=== PATIENT | male | born 1985 | race Caucasian/White ===

== ENCOUNTER 2018-09-09 16:05 | Inpatient (IN) | payer BC ==
[~2018-09-09] VITALS: Ht 172.7 cm; Wt 77.7 kg
[2018-09-09] MEDS ORDERED: ONDANSETRON (ODT) 4 MG TAB ODT STA (17:58)
[2018-09-09] MEDS ORDERED: ACETAMINOPHEN 325 MG TAB PO ONE (18:00)
[2018-09-09] MEDS ORDERED: PIPER-TAZO 3.375 GM IV (PMX) 100 ML IVPB ONE (19:30)
[2018-09-09 20:00] VITALS: BP 130/72; PULSE 69; RESP 18
[2018-09-09] MEDS ORDERED: NACL 0.9% 3 ML SYG IV SCH (20:00)
[2018-09-09] MEDS ORDERED: ONDANSETRON 4 MG INJ IV PRN (20:00)
[2018-09-09] MEDS ORDERED: SOD CHLORIDE 0.9% 1,000 ML IV ONE (20:00)
[2018-09-09] MEDS ORDERED: ACETAMINOPHEN 325 MG TAB PO PRN (20:00)
[2018-09-09] MEDS ORDERED: morphine 4 MG/ML VIAL IV PRN (20:00)
[2018-09-09] MEDS ORDERED: DOCUSATE SODIUM 100 MG CAP PO PRN (20:00)
[2018-09-09] MEDS ORDERED: BISACODYL (EC) 5 MG TAB PO PRN (20:00)
--- NOTE | 2018-09-09 21:02 | ERD ---
ER Documentation Chief Complaint Chief Complaint MID AP SINCE 3AM NV HPI 33-year-old male presents lower and mid abdominal pain since 3 AM this morning. Moderate in severity. Patient states that he had many episodes of nonbilious n onbloody vomiting, so he vomited was this morning. Denies diarrhea. States that last meal was at 1 PM and was Amharic toast. He denies any history of abdominal surgeries ROS All systems reviewed and are negative except as per history of present illness. Medications Home Meds No Active Prescriptions or Reported Meds Allergies Allergies: Coded Allergies: No Known Drug Allergy (Verified Allergy, Unknown, 09/09/18) PMhx/Soc History of Surgery: No Anesthesia Reaction: No Hx Neurological Disorder: No Hx Respiratory Disorders: No Hx Cardiac Disorders: No Hx Psychiatric Problems: No Hx Miscellaneous Medical Probl: No Hx Alcohol Use: No Hx Substance Use: No Hx Tobacco Use: No Smoking Status: Never smoker Physical Exam Vitals Vital Signs Date Temp Pulse Resp B/P (MAP) Pulse Ox O2 O2 Flow FiO2 Time Delivery Rate 09/09/18 98.1 102 17 159/78 100 16:15 (105) Physical Exam GENERAL: well-developed/well-nourished, in no apparent distress, non-toxic appearing HENT: NC/AT, moist mucous membranes EYES: Conjunctiva normal NECK: Supple, no lymphadenopathy PULM: CTA bilaterally, no rales, rhonchi, or wheezing heard CV: Normal S1S2, RRR, good capillary refill GI: Soft, non-distended, tender to palpation lower quadrant and lower abdomen bilaterally positive McBurney's BACK: No masses EXT: No clubbing, cyanosis, or edema NEURO: Alert and Orientated SKIN: Intact, normal turgor PSYCH: Normal mood and mentation Result Diagram: 09/09/18182409/09/181824 Results 24 hrs Laboratory Tests Test 09/09/18 18:16 09/09/18 18:25 Urine Color YELLOW Urine Clarity CLEAR Urine pH 6.0 Urine Specific [place] 1.015 Urine Ketones NEGATIVE mg/dL Urine Nitrite NEGATIVE mg/dL Urine Bilirubin NEGATIVE mg/dL Urine Urobilinogen NEGATIVE mg/dL Urine Leukocyte Esterase NEGATIVE Monica/ul Urine Hemoglobin NEGATIVE mg/dL Urine Glucose NEGATIVE mg/dL Urine Total Protein NEGATIVE mg/dl White Blood Count 10.7 10^3/ul Red Blood Count 4.75 10^6/ul Hemoglobin 14.7 g/dl Hematocrit 42.1 % Mean Corpuscular Volume 88.6 fl Mean Corpuscular Hemoglobin 30.9 pg Mean Corpuscular Hemoglobin Concent 34.9 g/dl Red Cell Distribution Width 11.9 % Platelet Count 278 10^3/UL Mean Platelet Volume 9.4 fl Immature Granulocytes % 0.200 % Neutrophils % 58.8 % Lymphocytes % 31.7 % Monocytes % 7.7 % Eosinophils % 1.2 % Basophils % 0.4 % Nucleated Red Blood Cells % 0.0 /100WBC Immature Granulocytes # 0.020 10^3/ul Neutrophils # 6.3 10^3/ul Lymphocytes # 3.4 10^3/ul Monocytes # 0.8 10^3/ul Eosinophils # 0.1 10^3/ul Basophils # 0.0 10^3/ul Nucleated Red Blood Cells # 0.0 10^3/ul Sodium Level 140 mmol/L Potassium Level 3.7 mmol/L Chloride Level 102 mmol/L Carbon Dioxide Level 25 mmol/L Anion Gap 13 Blood Urea Nitrogen 12 mg/dl Creatinine 0.74 mg/dl Est Glomerular Filtrat Rate mL/min > 60 mL/min Glucose Level 88 mg/dl Calcium Level 10.3 mg/dl Total Bilirubin 0.7 mg/dl Direct Bilirubin 0.00 mg/dl Indirect Bilirubin 0.7 mg/dl Aspartate Amino Transf (AST/SGOT) 31 IU/L Alanine Aminotransferase (ALT/SGPT) 38 IU/L Alkaline Phosphatase 95 IU/L Total Protein 7.9 g/dl Albumin 4.7 g/dl Globulin 3.20 g/dl Albumin/Globulin Ratio 1.46 Lipase 49 U/L Current Medications Medications Dose Sig/Ivan Start Time Status Last (Trade) Ordered Route PRN Stop Time Admin Dose Reason Admin Ondansetron 8 mg ONCE STAT 09/09/18 DC 09/09/18 HCl (Zofran ODT 17:58 18:11 Odt) 09/09/18 18:00 650 mg ONCE ONCE 09/09/18 DC 09/09/18 Acetaminophen PO 18:00 18:11 (Tylenol 09/09/18 18:01 Tab) Procedures/MDM 33-year-old male presents with abdominal pain and CT findings that are equivocal for appendicitis. Patient will be admitted [facility] with surgical consult with Dr. Luna tomorrow morning. I have consulted this case with my supervising physician who consulted Dr. Stanford, he accepted admission. Patient is afebrile, well-appearing and nontoxic. CT abd and pelvis without contrast Calcified appendicoliths within prominent infracecal appendix but no periappe ndiceal stranding, abscess or surrounding gas. Findings are equivocal for early appendicitis. Clinical correlation suggested. Consider targeted CT right lower quadrant with delayed oral contrast or rectal contrast and intravenous contrast for more definitive diagnosis if clinically indicated. Departure Diagnosis: Primary Impression: Appendicitis Condition: Stable SARAH TELLO PA-C Sep 09, 2018 21:02
[2018-09-09 22:00] VITALS: Ht 172.7 cm; Wt 77.7 kg
[2018-09-09] MEDS: SOD CHLORIDE 0.9% 1,000 ML IV SCH (22:25)
--- NOTE | 2018-09-09 23:28 | HP ---
Date/Time of Note Date/Time of Note DATE: 09/09/18 TIME: 23:27 Assessment/Plan VTE Prophylaxis SCD applied (from Nsg): Yes Pharmacological prophylaxis: NA/contraindicated Pharm contraindication: low risk/ambulating Lines/Catheters IV Catheter Type (from Nrsg): Saline Lock Assessment/Plan Hospital Course This is a 33-year-old male being admitted to the [facility] floor for: #1 suspect early appendicitis: CT of the abdomen pelvis is concerning for early appendicitis. He is currently afebrile and has a normal white blood cell count. He does have positive McBurney's point tenderness. N.p.o., IV fluid hydration with normal saline, Zosyn IV every [address] Luna has been consulted by the ED, will await further recommendations. #2 DVT GI prophylaxis: SCDs, no GI prophylaxis indicated Further treatment strategy will be implemented as per the clinical course Result Diagram: 09/09/18182409/09/18 1825 Results 24hrs Laboratory Tests Test 09/09/18 18:16 09/09/18 18:25 Urine Color YELLOW Urine Clarity CLEAR Urine pH 6.0 Urine Specific [place] 1.015 Urine Ketones NEGATIVE Urine Nitrite NEGATIVE Urine Bilirubin NEGATIVE Urine Urobilinogen NEGATIVE Urine Leukocyte Esterase NEGATIVE Urine Hemoglobin NEGATIVE Urine Glucose NEGATIVE Urine Total Protein NEGATIVE White Blood Count 10.7 Red Blood Count 4.75 Hemoglobin 14.7 Hematocrit 42.1 Mean Corpuscular Volume 88.6 Mean Corpuscular Hemoglobin 30.9 Mean Corpuscular Hemoglobin Concent 34.9 Red Cell Distribution Width 11.9 Platelet Count 278 Mean Platelet Volume 9.4 Immature Granulocytes % 0.200 Neutrophils % 58.8 Lymphocytes % 31.7 Monocytes % 7.7 Eosinophils % 1.2 Basophils % 0.4 Nucleated Red Blood Cells % 0.0 Immature Granulocytes # 0.020 Neutrophils # 6.3 Lymphocytes # 3.4 H Monocytes # 0.8 Eosinophils # 0.1 Basophils # 0.0 Nucleated Red Blood Cells # 0.0 Sodium Level 140 Potassium Level 3.7 Chloride Level 102 Carbon Dioxide Level 25 Anion Gap 13 Blood Urea Nitrogen 12 Creatinine 0.74 Est Glomerular Filtrat Rate mL/min > 60 Glucose Level 88 Calcium Level 10.3 H Total Bilirubin 0.7 Direct Bilirubin 0.00 Indirect Bilirubin 0.7 Aspartate Amino Transf (AST/SGOT) 31 Alanine Aminotransferase (ALT/SGPT) 38 Alkaline Phosphatase 95 Total Protein 7.9 Albumin 4.7 Globulin 3.20 Albumin/Globulin Ratio 1.46 Lipase 49 HPI/ROS Admit Date/Time Admit Date/Time Sep 09, 2018 at 19:20 Hx of Present Illness Chief complaint nausea vomiting, abdominal pain times 1 day 33-year-old male presents lower and mid abdominal pain since 3 AM this morning. Moderate in severity. Patient reports that he had had pain across his lower abdomen associated with nausea and vomiting which was nonbilious and nonbloody. Denies any chest pain or shortness of breath. Denies any fevers. Allergies: NKDA Medications: None ROS Const: As per HPI Eyes : No pain discharge or redness or change in visual acuity ENT: No pain, sore throat, congestion, congestion, dysphagia or discharge Respiratory: No shortness of breath, cough, sputum, wheezing, or pleuritic pain Cardiovascular: No chest pain, palpitation, PND, or edema GI : As per HPI Genitourinary: No dysuria, hematuria, flank pain , discharge or CVA tenderness Musculoskeletal: No joint pain, back pain, neck pain, restricted range of motion in neck or joints Skin: No rash, bruising or hives Neuro: No headache, dizziness, syncope, seizure, focal weakness Endocrine: No polyuria, polydipsia, temperature intolerance Psych: No hallucination, depression, anxiety or suicidal ideation PMH/Family/Social Past Medical History Medical History: no pertinent history Medications Current Medications Sodium Chloride 1,000 ml @ 100 mls/hr Q10H IV Last administered on 09/09/18at 22:25; Admin Dose 100 MLS/HR; Start 09/09/18 at 19:54 IV Flush (NS 3 ml) 3 ml PER PROTOCOL IV ; Start 09/09/18 at 20:00 Ondansetron HCl (Zofran Inj) 4 mg Q4H PRN IV NAUSEA; Start 09/09/18 at 20:00 Acetaminophen (Tylenol Tab) 650 mg Q6H PRN PO FEVER GREATER THAN 100.6; Start 09/09/18 at 20:00 Morphine Sulfate (morphine) 2 mg Q4H PRN IV PAIN LEVEL 4-6; Start 09/09/18 at 20:00 Docusate Sodium (Colace) 100 mg Q12H PRN PO CONSTIPATION; Start 09/09/18 at 20:00 Bisacodyl (Dulcolax) 5 mg DAILY PRN PO CONSTIPATION; Start 09/09/18 at 20:00 Piperacillin Sod/ Tazobactam Sod 100 ml @ 200 mls/hr Q6 IVPB ; Start 09/10/18 at 00:00 Coded Allergies: No Known Drug Allergy (Verified Allergy, Unknown, 09/09/18) Past Surgical History Exploratory oral scope Family History Significant Family History: no pertinent family hx Social History Alcohol Use: none Smoking Status: Never smoker Drug Use: none Exam/Review of Systems Vital Signs Vitals Vital Signs Date Temp Pulse Resp B/P (MAP) Pulse Ox O2 O2 Flow FiO2 Time Delivery Rate 09/09/18 97.7 69 18 130/72 96 20:00 (91) 09/09/18 Room Air 19:49 Exam Exam General: Patient is currently lying in bed in no acute distress HEENT: Atraumatic, normocephalic. The pupils are equal, round and reactive. Extraocular motor are intact Neck: Supple with full range of motion. No rigidity or meningismus Chest: Nontender Lungs: Clear to auscultation bilaterally no crackles rales or wheezing Heart: Normal S1-S2, Regular rhythm and rate. No murmur, S3, or S4 Abdomen: Soft , tender to palpation at the right lower abdominal quadrant, positive McBurney's point tenderness, no rebound or guarding, normal bowel sounds. Extremities: Normal to inspection, no edema no cyanosis Neurologic: Normal mental status, speech normal, cranial nerves II through XII are intact, motor and sensory are intact, no focal weakness Additional Comments PROCEDURE: CT abdomen and pelvis without contrast. CLINICAL INDICATION: Pain TECHNIQUE: CT scan of the abdomen and pelvis without contrast was performed and is reconstructed at 2.5 mm contiguous axial intervals from the dome of the diaphragm to the inferior pubic rami.. The patient was scanned without intravenous contrast. Sagittal and coronal reformatted images were obtained from the axial source images. The calculated radiation dose measures 782 mGy centimeters. The CTDI measures 13 mGy. Individualized dose optimization technique was used for the performance of this exam. This included 1. Automated exposure control. 2. Adjustment of the mA and / or kV according to the patient's size. 3. Use of iterative reconstructed technique. COMPARISON: None. FINDINGS: The lung bases are clear of any infiltrate or nodule. No effusion is seen. The liver is of normal size, contour and attenuation with no mass or ductal dilatation. No gallstones are visualized. No splenic, adrenal or pancreatic abnormalities present. Kidneys are of normal size and contour. No hydronephrosis, calculus or masses seen. Ureters are of normal course and caliber with no stone. No bladder mass or stone is present. Prostate and seminal vesicles are normal. There is no aneurysm. No adenopathy is present. No bowel mass or obstruction is present. Calcified appendicoliths are seen within the appendix which measures up to 9 mm in diameter. There is no stranding of the surrounding fat and no abscess or surrounding extraluminal gas is seen.. No phlegmon, ascites or pneumoperitoneum is visualized. The osseous structures are intact. IMPRESSION: Calcified appendicoliths within prominent infracecal appendix but no periappendiceal stranding, abscess or surrounding gas. Findings are equivocal for early appendicitis. Clinical correlation suggested. Consider targeted CT right lower quadrant with delayed oral contrast or rectal contrast and intravenous contrast for more definitive diagnosis if clinically indicated. .Aneudy Cartagena MD, MD Date Time Electronically viewed and signed by .Aneudy Cartagena MD, on 09/09/2018 18:30 .A/ CC: SARAH TELLO PA-C [id number] GAVINO LUCAS Sep 09, 2018 23:28
[2018-09-09] MEDS: PIPER-TAZO 3.375 GM IV (PMX) 100 ML IVPB SCH (23:37)
[2018-09-10] VITALS (22 sets, daily range): BP systolic 109–143; BP diastolic 54–96; PULSE 52–77; RESP 13–24
[2018-09-10] MEDS: SOD CHLORIDE 0.9% 1,000 ML IV SCH ×3 (05:54→23:17)
[2018-09-10] MEDS: PIPER-TAZO 3.375 GM IV (PMX) 100 ML IVPB SCH ×3 (06:33→18:00)
--- NOTE | 2018-09-10 07:44 | CONS ---
Date/Time of Note Date/Time of Note DATE: 09/10/18 TIME: 07:41 Assessment/Plan Assessment/Plan Assessment/Plan Clinically this patient has acute appendicitis. I recommend laparoscopic appendectomy possible open. I have discussed the procedure, outcomes, expectations, alternatives and risks in detail with the patient who has an excellent understanding of the nature of his situation and agrees to the proposed plan of therapy as outlined. Result Diagram: 09/10/18 0432 09/10/18 0432 Results 24hrs Laboratory Tests Test 09/09/18 18:16 09/09/18 18:25 09/10/18 04:32 Urine Color YELLOW Urine Clarity CLEAR Urine pH 6.0 Urine Specific [place] 1.015 Urine Ketones NEGATIVE Urine Nitrite NEGATIVE Urine Bilirubin NEGATIVE Urine Urobilinogen NEGATIVE Urine Leukocyte Esterase NEGATIVE Urine Hemoglobin NEGATIVE Urine Glucose NEGATIVE Urine Total Protein NEGATIVE White Blood Count 10.7 8.4 # Red Blood Count 4.75 4.26 L Hemoglobin 14.7 13.3 L Hematocrit 42.1 38.4 L Mean Corpuscular Volume 88.6 90.1 Mean Corpuscular Hemoglobin 30.9 31.2 Mean Corpuscular Hemoglobin Concent 34.9 34.6 Red Cell Distribution Width 11.9 12.2 Platelet Count 278 220 # Mean Platelet Volume 9.4 9.7 Immature Granulocytes % 0.200 0.200 Neutrophils % 58.8 51.1 Lymphocytes % 31.7 37.8 Monocytes % 7.7 7.8 Eosinophils % 1.2 2.7 Basophils % 0.4 0.4 Nucleated Red Blood Cells % 0.0 0.0 Immature Granulocytes # 0.020 0.020 Neutrophils # 6.3 4.3 Lymphocytes # 3.4 H 3.2 H Monocytes # 0.8 0.7 Eosinophils # 0.1 0.2 Basophils # 0.0 0.0 Nucleated Red Blood Cells # 0.0 0.0 Sodium Level 140 145 H Potassium Level 3.7 4.6 Chloride Level 102 104 Carbon Dioxide Level 25 29 Anion Gap 13 12 Blood Urea Nitrogen 12 11 Creatinine 0.74 0.91 Est Glomerular Filtrat Rate mL/min > 60 > 60 Glucose Level 88 96 Calcium Level 10.3 H 9.4 Total Bilirubin 0.7 1.4 H Direct Bilirubin 0.00 0.00 Indirect Bilirubin 0.7 1.4 H Aspartate Amino Transf (AST/SGOT) 31 25 Alanine Aminotransferase (ALT/SGPT) 38 38 Alkaline Phosphatase 95 72 Total Protein 7.9 6.8 # Albumin 4.7 3.9 Globulin 3.20 2.90 Albumin/Globulin Ratio 1.46 1.34 Lipase 49 Hemoglobin A1c 4.9 Magnesium Level 2.1 Triglycerides Level 97 Cholesterol Level 162 LDL Cholesterol, Calculated 109 HDL Cholesterol 34 Cholesterol/HDL Ratio 4.7 Thyroid Stimulating Hormone (TSH) 0.664 Consultation Date/Type/Reason Admit Date/Time Sep 09, 2018 at 19:20 Date of Consultation: Sep 10, 2018 Type of Consult General surgery Reason for Consultation Acute appendicitis Hx of Present Illness The patient is an otherwise healthy 33-year-old male who presents with abdominal pain which intensified in severity than localized to the right lower quadrant. Although his white count was normal, he had tenderness over McBurney's point and a CT scan was suggestive but not completely diagnostic of acute appendicitis. The patient is admitted and surgical consultation is requested in that regard. The patient states that his pain has continued throughout the night. He has had no fevers, chills or change in bowel or bladder habits. Constitutional: no complaints Eyes: no complaints ENT: no complaints Respiratory: no complaints Cardiovascular: no complaints Gastrointestinal: pain, nausea Genitourinary: no complaints Musculoskeletal: no complaints Skin: no complaints Neurologic: no complaints Endocrine: no complaints Past Medical History Medical History: no pertinent history Medications Current Medications Sodium Chloride 1,000 ml @ 100 mls/hr Q10H IV Last administered on 09/09/18at 22:25; Admin Dose 100 MLS/HR; Start 09/09/18 at 19:54 IV Flush (NS 3 ml) 3 ml PER PROTOCOL IV ; Start 09/09/18 at 20:00 Ondansetron HCl (Zofran Inj) 4 mg Q4H PRN IV NAUSEA; Start 09/09/18 at 20:00 Acetaminophen (Tylenol Tab) 650 mg Q6H PRN PO FEVER GREATER THAN 100.6; Start 09/09/18 at 20:00 Morphine Sulfate (morphine) 2 mg Q4H PRN IV PAIN LEVEL 4-6; Start 09/09/18 at 20:00 Docusate Sodium (Colace) 100 mg Q12H PRN PO CONSTIPATION; Start 09/09/18 at 20:00 Bisacodyl (Dulcolax) 5 mg DAILY PRN PO CONSTIPATION; Start 09/09/18 at 20:00 Piperacillin Sod/ Tazobactam Sod 100 ml @ 200 mls/hr Q6 IVPB Last administered on 09/10/18at 06:33; Admin Dose 200 MLS/HR; Start 09/10/18 at 00:00 Allergies: Coded Allergies: No Known Drug Allergy (Verified Allergy, Unknown, 09/09/18) Past Surgical History Past Surgical Hx: no surgical history Family History Significant Family History: no pertinent family hx Social History Alcohol Use: none Smoking Status: Former smoker Drug Use: none Exam/Review of Systems Vital Signs Vitals Vital Signs Date Temp Pulse Resp B/P (MAP) Pulse Ox O2 O2 Flow FiO2 Time Delivery Rate 09/10/18 98.0 62 18 109/65 96 02:00 (80) 09/09/18 Room Air 19:49 Intake and Output 09/09/18 09/09/18 09/10/18 1515:00 23:00 07:00 IntakeIntake Total 600 ml 650 ml BalanceBalance 600 ml 650 ml Exam Constitutional: alert, oriented Psych: no complaints Head: normocephalic Eyes: nl conjunctiva ENMT: nl external ears & nose Neck: supple Respiratory: clear to auscultation Cardiovascular: regular rate and rhythm Gastrointestinal: tender (Tender right lower quadrant with guarding but no rebound) Musculoskeletal: nl extremities to inspection Extremities: normal pulses Neurological: MENTAL HEALTH ORDERLY II-XII intact Medications Medications Current Medications Sodium Chloride 1,000 ml @ 100 mls/hr Q10H IV Last administered on 09/09/18at 22:25; Admin Dose 100 MLS/HR; Start 09/09/18 at 19:54 IV Flush (NS 3 ml) 3 ml PER PROTOCOL IV ; Start 09/09/18 at 20:00 Ondansetron HCl (Zofran Inj) 4 mg Q4H PRN IV NAUSEA; Start 09/09/18 at 20:00 Acetaminophen (Tylenol Tab) 650 mg Q6H PRN PO FEVER GREATER THAN 100.6; Start 09/09/18 at 20:00 Morphine Sulfate (morphine) 2 mg Q4H PRN IV PAIN LEVEL 4-6; Start 09/09/18 at 20:00 Docusate Sodium (Colace) 100 mg Q12H PRN PO CONSTIPATION; Start 09/09/18 at 20:00 Bisacodyl (Dulcolax) 5 mg DAILY PRN PO CONSTIPATION; Start 09/09/18 at 20:00 Piperacillin Sod/ Tazobactam Sod 100 ml @ 200 mls/hr Q6 IVPB Last administered on 09/10/18at 06:33; Admin Dose 200 MLS/HR; Start 09/10/18 at 00:00 OTTONIEL RECINOS MD Sep 10, 2018 07:44
--- NOTE | 2018-09-10 07:57 | NUR ---
END OF SHIFT NOTE: Pt was admitted last night from ER for Acute APPY.Pt is AOX4, OOB with supervision. NPO with IVF infusing. Denies of pain, NO N/V. Pending surgeon to see patient this morning. Safety precautions maintained, call light within reach, low bed position..
--- NOTE | 2018-09-10 09:14 | PN ---
Date/Time of Note Date/Time of Note DATE: 09/10/18 TIME: 09:14 Assessment/Plan VTE Prophylaxis SCD applied (from Nsg): Yes Pharmacological prophylaxis: NA/contraindicated Pharm contraindication: surgical contra Lines/Catheters IV Catheter Type (from Nrsg): Peripheral IV Urinary Cath still in place: No Assessment/Plan Assessment/Plan 1. Acute appendicitis - Surgery on board and plans for surgical intervention tonight - IVF and IV antibiotics on board - pain control - will resume diet after surgical intervention - Medically cleared for surgery today 2. Disposition - Lap appy today with Dr. Luna Result Diagram: 09/10/18 0432 09/10/18 0432 Results 24hrs Laboratory Tests Test 09/09/18 18:16 09/09/18 18:25 09/10/18 04:32 Urine Color YELLOW Urine Clarity CLEAR Urine pH 6.0 Urine Specific [place] 1.015 Urine Ketones NEGATIVE Urine Nitrite NEGATIVE Urine Bilirubin NEGATIVE Urine Urobilinogen NEGATIVE Urine Leukocyte Esterase NEGATIVE Urine Hemoglobin NEGATIVE Urine Glucose NEGATIVE Urine Total Protein NEGATIVE White Blood Count 10.7 8.4 # Red Blood Count 4.75 4.26 L Hemoglobin 14.7 13.3 L Hematocrit 42.1 38.4 L Mean Corpuscular Volume 88.6 90.1 Mean Corpuscular Hemoglobin 30.9 31.2 Mean Corpuscular Hemoglobin Concent 34.9 34.6 Red Cell Distribution Width 11.9 12.2 Platelet Count 278 220 # Mean Platelet Volume 9.4 9.7 Immature Granulocytes % 0.200 0.200 Neutrophils % 58.8 51.1 Lymphocytes % 31.7 37.8 Monocytes % 7.7 7.8 Eosinophils % 1.2 2.7 Basophils % 0.4 0.4 Nucleated Red Blood Cells % 0.0 0.0 Immature Granulocytes # 0.020 0.020 Neutrophils # 6.3 4.3 Lymphocytes # 3.4 H 3.2 H Monocytes # 0.8 0.7 Eosinophils # 0.1 0.2 Basophils # 0.0 0.0 Nucleated Red Blood Cells # 0.0 0.0 Sodium Level 140 145 H Potassium Level 3.7 4.6 Chloride Level 102 104 Carbon Dioxide Level 25 29 Anion Gap 13 12 Blood Urea Nitrogen 12 11 Creatinine 0.74 0.91 Est Glomerular Filtrat Rate mL/min > 60 > 60 Glucose Level 88 96 Calcium Level 10.3 H 9.4 Total Bilirubin 0.7 1.4 H Direct Bilirubin 0.00 0.00 Indirect Bilirubin 0.7 1.4 H Aspartate Amino Transf (AST/SGOT) 31 25 Alanine Aminotransferase (ALT/SGPT) 38 38 Alkaline Phosphatase 95 72 Total Protein 7.9 6.8 # Albumin 4.7 3.9 Globulin 3.20 2.90 Albumin/Globulin Ratio 1.46 1.34 Lipase 49 Hemoglobin A1c 4.9 Magnesium Level 2.1 Triglycerides Level 97 Cholesterol Level 162 LDL Cholesterol, Calculated 109 HDL Cholesterol 34 Cholesterol/HDL Ratio 4.7 Thyroid Stimulating Hormone (TSH) 0.664 Subjective 24 Hr Interval Summary Free Text/Dictation Patient in no acute distress. states abdominal pain is stable and denies any worsening. Plans for lap appy tonight. Exam/Review of Systems Vital Signs Vitals Vital Signs Date Temp Pulse Resp B/P (MAP) Pulse Ox O2 O2 Flow FiO2 Time Delivery Rate 09/10/18 98.5 56 18 117/71 97 08:22 (86) 09/09/18 Room Air 19:49 Intake and Output 09/09/18 09/09/18 09/10/18 1515:00 23:00 07:00 IntakeIntake Total 600 ml 750 ml BalanceBalance 600 ml 750 ml Exam General: Patient is currently lying in bed in no acute distress Neck: Supple Lungs: Clear to auscultation bilaterally no crackles rales or wheezing Heart: Normal S1-S2, Regular rhythm and rate. No murmur, S3, or S4 Abdomen: Soft , mild tenderness to palpation at the right lower abdominal quadrant. no rebound or guarding, normal bowel sounds. Extremities: Normal to inspection, no edema no cyanosis Medications Medications Current Medications Sodium Chloride 1,000 ml @ 100 mls/hr Q10H IV Last administered on 09/09/18at 22:25; Admin Dose 100 MLS/HR; Start 09/09/18 at 19:54 IV Flush (NS 3 ml) 3 ml PER PROTOCOL IV ; Start 09/09/18 at 20:00 Ondansetron HCl (Zofran Inj) 4 mg Q4H PRN IV NAUSEA; Start 09/09/18 at 20:00 Acetaminophen (Tylenol Tab) 650 mg Q6H PRN PO FEVER GREATER THAN 100.6; Start 09/09/18 at 20:00 Morphine Sulfate (morphine) 2 mg Q4H PRN IV PAIN LEVEL 4-6; Start 09/09/18 at 20:00 Docusate Sodium (Colace) 100 mg Q12H PRN PO CONSTIPATION; Start 09/09/18 at 20:00 Bisacodyl (Dulcolax) 5 mg DAILY PRN PO CONSTIPATION; Start 09/09/18 at 20:00 Piperacillin Sod/ Tazobactam Sod 100 ml @ 200 mls/hr Q6 IVPB Last administered on 09/10/18at 06:33; Admin Dose 200 MLS/HR; Start 09/10/18 at 00:00 WILBER RESENDEZ MD Sep 10, 2018 09:14
--- NOTE | 2018-09-10 17:18 | NUR ---
NRSG NOTE Pt taken down to OR for surgery with Dr. Luna. IV fluids and BP cuff sent with pt pre Skye RN request. Pt girlfriend went down with him. All belongings in pt room.
--- NOTE | 2018-09-10 17:43 | PREAC ---
Date/Time of Note Date/Time of Note DATE: 09/10/18 TIME: 17:41 Anesthesia Eval and Record Evaluation Time Pre-Procedure Interview DATE: 09/10/18 TIME: 17:41 Age 33 Sex male NPO: 8 hrs Preoperative diagnosis acute appendicitis Planned procedure laparoscopic appendectomy Past Medical History Past Medical History: None Surgery & Anesthesia Issues No known issue Meds Anticoagulation: No Beta Ravi within 24 hr: No Reason Beta Ravi not given: Pt. not on B-Ravi No Active Prescriptions or Reported Meds Current Medications Sodium Chloride 1,000 ml @ 100 mls/hr Q10H IV Last administered on 09/10/18at 11:53; Admin Dose 100 MLS/HR; Start 09/09/18 at 19:54 IV Flush (NS 3 ml) 3 ml PER PROTOCOL IV ; Start 09/09/18 at 20:00 Ondansetron HCl (Zofran Inj) 4 mg Q4H PRN IV NAUSEA; Start 09/09/18 at 20:00 Acetaminophen (Tylenol Tab) 650 mg Q6H PRN PO FEVER GREATER THAN 100.6; Start 09/09/18 at 20:00 Morphine Sulfate (morphine) 2 mg Q4H PRN IV PAIN LEVEL 4-6; Start 09/09/18 at 20:00 Docusate Sodium (Colace) 100 mg Q12H PRN PO CONSTIPATION; Start 09/09/18 at 20:00 Bisacodyl (Dulcolax) 5 mg DAILY PRN PO CONSTIPATION; Start 09/09/18 at 20:00 Piperacillin Sod/ Tazobactam Sod 100 ml @ 200 mls/hr Q6 IVPB Last administered on 09/10/18at 11:53; Admin Dose 200 MLS/HR; Start 09/10/18 at 00:00 Meds reviewed: Yes Allergies Coded Allergies: No Known Drug Allergy (Verified Allergy, Unknown, 09/09/18) Allergies Reviewed: Yes Labs/Studies Labs Reviewed: Reviewed by anesthesiologist Result Diagram: 09/10/18 0432 09/10/18 0432 Laboratory Tests 09/10/18 04:32 test: N/A Pre-procedure Exam Last vitals Vital Signs Date Temp Pulse Resp B/P (MAP) Pulse Ox O2 O2 Flow FiO2 Time Delivery Rate 09/10/18 98.4 52 18 135/54 98 15:03 (81) 09/09/18 Room Air 19:49 Airway: Adequate mouth opening, Adequate thyromental dist Mallampati: Mallampati II Teeth: Normal Lung: Normal Heart: Normal ASA Physical Status ASA physical status: 2 Emergency: None Planned Anesthetic General/MAC: ETT Nerve block: TAP (bilateral) Planned Pain Management Single shot nerve block, Parenteral pain med Pre-operative Attestations Prior to commencing anesthesia and surgery, the patient was re-evaluated, there was verification of: *The patient's identity *The results of appropriate recent lab work and preoperative vital signs *The above evaluation not changing prior to induction *Anesthetic plan, risk benefits, alternative and complications discussed with patient/family; questions answered; patient/family understands, accepts and wishes to proceed. FRANCISCO FLORES MD Sep 10, 2018 17:43
[2018-09-10] MEDS ORDERED: ROPIVACAINE 0.5 % 30 ML VIAL ONE (18:09)
[2018-09-10] MEDS ORDERED: MIDAZOLAM 1 MG/ML 2 ML INJ ONE (18:09)
[2018-09-10] MEDS ORDERED: FENTAnyl 50 MCG/ML VIAL ONE (18:09)
[2018-09-10] MEDS ORDERED: BUPIVACAINE 0.5%/EPI (SDV) 30 ML INJ ONE (18:27)
[2018-09-10] MEDS ORDERED: SUCCINYLCHOLINE CHLORIDE 100 MG/5 ML SYG IV ONE (18:29)
[2018-09-10] MEDS ORDERED: LIDOCAINE 2% (SDV) 5 ML INJ ONE (18:29)
[2018-09-10] MEDS ORDERED: ROCURONIUM 50 MG INJ ONE (18:29)
[2018-09-10] MEDS ORDERED: PROPOFOL 20 ML ONE ×2 (18:29→18:44)
[2018-09-10] MEDS ORDERED: FENTAnyl 50 MCG/ML VIAL IV PRN ×3 (18:30)
[2018-09-10] MEDS ORDERED: DIPHENHYDRAMINE 50 MG INJ IV PRN (18:30)
[2018-09-10] MEDS ORDERED: PROCHLORPERAZINE 10 MG INJ IV PRN (18:30)
[2018-09-10] MEDS ORDERED: HYDROmorphONE 1 MG/5 ML IV SYRINGE IV PRN ×3 (18:30)
[2018-09-10] MEDS ORDERED: MEPERIDINE 25 MG INJ IV PRN (18:30)
[2018-09-10] MEDS ORDERED: ONDANSETRON 4 MG INJ IV PRN ×2 (18:30→19:30)
[2018-09-10] MEDS: CEFAZOLIN 1 GM/50 ML (PMX) 50 ML IVPB SCH (18:47)
[2018-09-10] MEDS ORDERED: DEXAMETHASONE 4 MG/ML 5 ML INJ ONE (18:56)
[2018-09-10] MEDS ORDERED: FAMOTIDINE 20 MG INJ ONE (18:56)
[2018-09-10] MEDS ORDERED: ONDANSETRON 4 MG INJ ONE (18:56)
[2018-09-10] MEDS ORDERED: CEFAZOLIN 1 GM INJ ONE (19:00)
[2018-09-10] MEDS ORDERED: SUGAMMADEX SODIUM 200 MG/2 ML VIAL IV ONE (19:01)
[2018-09-10] MEDS ORDERED: KETOROLAC 30 MG INJ ONE (19:08)
--- NOTE | 2018-09-10 19:13 | OPR ---
Date/Time of Note Date/Time of Note DATE: 09/10/18 TIME: 19:09 Operative Report Procedure Date: Sep 10, 2018 Preoperative Diagnosis Acute appendicitis Postoperative Diagnosis Acute appendicitis without localized peritonitis Operation/Procedure Performed Laparoscopic appendectomy Surgeon Ottoniel Recinos MD Mine Motor Engineer None Anesthesia Type: general Anesthesiologist: FRANCISCO FLORES MD Estimated Blood Loss: minimal Transfusion none Specimen Appendix Grafts/Implants none Tubes/Drains None Complications none Pt Condition Post Procedure: stable Disposition: PACU Indications Acute appendicitis Procedure Description After satisfactory general endotracheal anesthesia was achieved, the abdomen was prepped and draped in the usual fashion. The abdomen was insufflated with carbon dioxide through an umbilical Veress needle to 15 mmHg pressure. The Veress needle was removed and the umbilical incision extended to 5 mm through which a 5 mm trocar was placed. A 5 mm 0 degree lens was placed. Under direct visualization a 5 mm suprapubic trocar was placed. The patient was then placed in Trendelenburg and right side up position and the camera placed into the suprapubic port. The appendix was easily visualized the distal appendix was acutely inflamed without localized peritonitis. Under direct visualization a 12 mm trocar was placed midway between the umbilicus and the xiphoid. A window was made in the mesoappendix through which a vascular stapler was placed across the base of the cecum, closed and fired disconnecting the appendix from the cecum. A second firing of the vascular stapler across the mesoappendix fully freed the appendix which was placed intact into an Endo Catch removed by the 12 mm port site. Hemostasis of both staple lines was total and irrigant returned clear. With the assistance of a ila-close device 2 sutures of 0 Vicryl were placed at the fascia of the 12 mm port. The abdomen was then desufflated and all trochars were removed. The skin punctures were infiltrated with a total of 10 cc of 0.25% Marcaine with epinephrine. The fascial sutures were tied down and the skin punctures were closed with tereso. Sponge and needle counts were reported as correct x2. OTTONIEL RECINOS MD Sep 10, 2018 19:13
--- NOTE | 2018-09-10 19:23 | PAC ---
Date/Time of Note Date/Time of Note DATE: 09/10/18 TIME: 19:20 Post-Anesthesia Notes Post-Anesthesia Note Last documented vital signs Vital Signs Date Temp Pulse Resp B/P (MAP) Pulse Ox O2 O2 Flow FiO2 Time Delivery Rate 09/10/18 98.4 52 18 135/54 98 15:03 (81) 09/09/18 Room Air 19:49 Activity: WNL Respiratory function: WNL Cardiovascular function: WNL Mental status: Baseline Pain reasonably controlled: Yes Hydration appropriate: Yes Nausea/Vomiting absent: Yes Comments BP: 124/70 HR: 60 RR: 15 T: 98 SaO2: 100% FRANCISCO FLORES MD Sep 10, 2018 19:23
[2018-09-10] MEDS ORDERED: OXYCODONE/ACETAMINOPHEN (5/325) TAB PO PRN ×2 (19:30)
[2018-09-10] MEDS ORDERED: morphine 2 MG INJ IV PRN (19:30)
--- NOTE | 2018-09-10 19:42 | NUR ---
Patient is stable. Vital sign stable. No resp distress. Denies pain and nausea. Three large Bandaids to abdomen remains clean, dry and intact. Report given to FERNY Cannon.
--- NOTE | 2018-09-10 20:09 | NUR ---
Hand-off report received from COAL HANDLING SUPERVISORFERNY Cannon, anticipating patient's arrival to 4[facility] soon; will be due to void in the next 6-7hours.
--- NOTE | 2018-09-10 20:30 | NUR ---
Patient arrived in 4W from PACU S/P laparoscopic appendectomy; oriented to room/unit, call nieto placed within reached and side rails x2 raised for safety. Started on clear liquids and no pain nor abdominal discomforts complaints made at this time. laparoscopic incisions remain C/D/I. Needs assisted, will continue to monitor.
[2018-09-11] VITALS: BP 117/67; PULSE 87; RESP 20
[2018-09-11 04:00] VITALS: BP 122/63; PULSE 76; RESP 17
[2018-09-11] MEDS: CEFAZOLIN 1 GM/50 ML (PMX) 50 ML IVPB SCH (06:12)
--- NOTE | 2018-09-11 06:49 | NUR ---
RN EOSS NOTES: Patient slept well overnight, afebrile and denies any pain to laparoscopic surgical incisions to abdomen. Has tolerated clear liquids and has been advanced to regular diet-already ate a sand which at supper- no N/V reported to RN. Voiding adequately and has ambulated in his room and the hallways since last night. Needs assisted.
[2018-09-11 07:53] VITALS: BP 136/72; PULSE 55; RESP 18
[2018-09-11 07:59] VITALS: BP 150/58; PULSE 78; RESP 18
--- NOTE | 2018-09-11 12:00 | NUR ---
Patient is up and about the unit,no c/o nausea/ vomiting, denies pain, tolerated diet,incision CDI
--- NOTE | 2018-09-11 12:29 | PDOCDIS ---
Discharge Instructions CONDITION [id number] Patient Condition: [id number] Stable HOME CARE INSTRUCTIONS: [id number] Diet Instructions: [id number] Regular ACTIVITY: [id number] Activity Restrictions: Caqce5n Rest between Activity Avoid heavy lifting Avoid Heavy Housework [id number] Bathing Restrictions: Rygst2o Tub Bath FOLLOW UP/APPOINTMENTS Follow-up Plan 1.Follow-up with in 1week [address] [facility] [address] [place] [address] Office Post operative Instructions *Do not lift anything more than 25 pounds for 6 to 8 weeks *Do not swim or take hot tub bath for 2weeks *Remove dressing and May shower-Use mild soap around site and pat dry *If you notice any oozing, bleeding or other drainage or having fever or chills from site please contact Surgeon's office-If unable to get office, you may go to nearest emergency room DARIEN MENENDEZ NP Sep 11, 2018 12:29
[2018-09-11] MEDS ORDERED: DOCU-144 PO (12:31)
[2018-09-11] MEDS ORDERED: HYDR-4011 PO (12:31)
[2018-09-11] MEDS ORDERED: AMOX1TAB10 PO (12:31)
--- NOTE | 2018-09-11 12:36 | DS ---
Date/Time of Note Date/Time of Note DATE: 09/11/18 TIME: 12:34 Discharge Summary Admission/Discharge Info Admit Date/Time Sep 09, 2018 at 19:20 Discharge Date/Time Discharge Diagnosis 1. Acute appendicitis. Status post appendectomy Patient Condition: Stable Consults Dr. Luna, surgeon Procedures 09/09/2018. CT abdomen and pelvis. MPRESSION: Calcified appendicoliths within prominent infracecal appendix but no periappendiceal stranding, abscess or surrounding gas. Findings are equivocal for early appendicitis. Clinical correlation suggested. Consider targeted CT right lower quadrant with delayed oral contrast or rectal contrast and intravenous contrast for more definitive diagnosis if clinically indicated. 09/10/2018. Laparoscopic appendectomy Hospital Course 83-year-old male admitted with acute appendicitis. Patient underwent laparoscopic appendectomy on 09/10/2018, no evidence of peritonitis. Patient did well postoperatively. He was able to tolerate diet and activities. Patient had regular bowel movement. No fevers or leukocytosis. He is medically cleared for discharge with outpatient surgery follow-up in a week. Approximately 60 m spent on coordinating the discharge on this patient. Patient is seen in collaboration with Dr. Garcia. Home Meds Active Scripts Docusate Sodium* (Colace*) 100 Mg Capsule, 100 MG PO DAILY, #30 CAP Prov:MENENDEZ,DARIEN V. OUTSIDE INSTALLATION MACHINIST 09/11/18 Hydrocodone/Acetaminophen ([place] 5-325 Tablet) 1 Each Tablet, 1 EACH PO Q6H for pain, #15 TAB Prov:MENENDEZ,DARIEN V. OUTSIDE INSTALLATION MACHINIST 09/11/18 Amoxicillin/Potassium Clav (Amox-Clav 875-125 mg Tablet) 875-125 mg Tab, 1 TAB PO BID, #20 TAB Prov:DARIEN MENENDEZ V. OUTSIDE INSTALLATION MACHINIST 09/11/18 Follow-up Plan 1.Follow-up with in 1week [address] [facility] [address] [place] [address] Office Post operative Instructions *Do not lift anything more than 25 pounds for 6 to 8 weeks *Do not swim or take hot tub bath for 2weeks *Remove dressing and May shower-Use mild soap around site and pat dry *If you notice any oozing, bleeding or other drainage or having fever or chills from site please contact Surgeon's office-If unable to get office, you may go to nearest emergency room Primary Care Provider Care Physician No Primary Pending Labs Laboratory Tests Test 09/11/18 04:34 White Blood Count 7.7 10^3/ul (4.8-10.8) Red Blood Count 4.46 10^6/ul (4.70-6.10) Hemoglobin 13.7 g/dl (14.0-18.0) Hematocrit 39.9 % (42.0-52.0) Mean Corpuscular Volume 89.5 fl (82.0-101.0) Mean Corpuscular Hemoglobin 30.7 pg (29.0-33.0) Mean Corpuscular Hemoglobin Concent 34.3 g/dl (32.0-37.0) Red Cell Distribution Width 11.7 % (11.5-14.5) Platelet Count 247 10^3/UL (140-415) Mean Platelet Volume 10.0 fl (7.4-10.4) Immature Granulocytes % 0.400 % (0.001-0.429) Neutrophils % 85.4 % (39.0-77.0) Lymphocytes % 10.6 % (15.0-51.0) Monocytes % 3.6 % (0.0-11.0) Eosinophils % 0.0 % (0.0-7.0) Basophils % 0.0 % (0.0-2.0) Nucleated Red Blood Cells % 0.0 /100WBC (0.0-0.0) Immature Granulocytes # 0.030 10^3/ul (0.0-0.031) Neutrophils # 6.6 10^3/ul (1.6-7.5) Lymphocytes # 0.8 10^3/ul (0.8-2.9) Monocytes # 0.3 10^3/ul (0.3-0.9) Eosinophils # 0.0 10^3/ul (0.0-0.5) Basophils # 0.0 10^3/ul (0.0-0.1) Nucleated Red Blood Cells # 0.0 10^3/ul (0.0-0.0) Sodium Level 142 mmol/L (135-144) Potassium Level 4.5 mmol/L (3.5-5.1) Chloride Level 103 mmol/L (97-110) Carbon Dioxide Level 26 mmol/L (21-31) Anion Gap 13 (5-13) Blood Urea Nitrogen 13 mg/dl (7-20) Creatinine 0.77 mg/dl (0.61-1.24) Est Glomerular Filtrat Rate mL/min > 60 mL/min (>60) Glucose Level 169 mg/dl (70-220) Calcium Level 9.8 mg/dl (8.4-10.2) Magnesium Level 2.0 mg/dl (1.7-2.5) Total Bilirubin 0.5 mg/dl (0.2-1.3) Direct Bilirubin 0.00 mg/dl (0.00-0.20) Indirect Bilirubin 0.5 mg/dl (0-1.1) Aspartate Amino Transf (AST/SGOT) 24 IU/L (15-46) Alanine Aminotransferase (ALT/SGPT) 33 IU/L (13-69) Alkaline Phosphatase 72 IU/L (42-121) Total Protein 7.2 g/dl (6.1-8.1) Albumin 4.1 g/dl (3.3-4.9) Globulin 3.10 g/dl (1.3-3.2) Albumin/Globulin Ratio 1.32 DARIEN MENENDEZ V. OUTSIDE INSTALLATION MACHINIST Sep 11, 2018 12:36
[2018-09-11] MEDS ORDERED: CEPH-443 PO (12:37)
[2018-09-11] MEDS ORDERED: work note (12:37)
== END 2018-09-11 13:11 | disposition home or self-care (01) | DRG 343 ==
LOC: FTE 16:05 → MS1 19:20
PROVIDERS: ADMIT Family Medicine; ATTEND Internal Medicine
PROC: 0DTJ4ZZ Resection of Appendix, Percutaneous Endoscopic Approach (ICD-10-PCS; principal; 2018-09-10 19:00)
DX: K35.80 Unspecified acute appendicitis (principal); Z87.891 Personal history of nicotine dependence
CPT/HCPCS: 74176; 80053; 80061; 81003; 83036; 83690; 83735; 84443; 85025; 87040; 88304; J0690; J1100; J1885; J2250; J2405; J2543; J2795; J3010; J7030